=== PATIENT | female | born 1960 | race Caucasian/White ===

== ENCOUNTER → 2017-09-04 17:38 | Outpatient (CLI) | payer OTHER | END | disposition home or self-care (01) | LOC: D.MAMMO 07-18 11:00 | DX: Z12.31 Encounter for screening mammogram for malignant neoplasm of breast (principal) ==

== ENCOUNTER → 2018-12-09 18:30 | Outpatient (CLI) | payer OTHER | END | disposition home or self-care (01) | LOC: D.MAMMO 13:15 | PROVIDERS: ATTEND Family Medicine | DX: Z12.31 Encounter for screening mammogram for malignant neoplasm of breast (principal) ==

== ENCOUNTER → 2020-09-27 08:18 | Outpatient (CLI) | payer OTHER ==
[2020-09-27 09:20] LABS: ALBUMIN 3.8 g/dL (3.4-5.0); BILIRUBIN - DIRECT 0.08 mg/dL (0.00-0.30); BILIRUBIN - INDIRECT 0.3 mg/dL (0.00-1.00); BILIRUBIN - TOTAL 0.38 mg/dL (0.2-1.3); PROTEIN - SERUM 7.6 g/dL (6.4-8.2)
[2020-09-28 08:13] LABS: ANA REFLEX - DIRECT Negative (Negative)
[2020-09-28 11:11] LABS: IMMUNOGLOBULIN G 989 mg/dL (586-1602)
[2020-09-29 13:12] LABS: MITOCHONDRIAL ANTIBODY 101.1 Units (0.0-20.0); SMOOTH MUSCLE ABS (ACTIN) 31 Units (0-19)
== END | disposition home or self-care (01) ==
LOC: D.US 08:15
PROVIDERS: ATTEND Internal Medicine Gastroenterology
DX: K75.4 Autoimmune hepatitis (principal)

== ENCOUNTER → 2020-10-25 08:38 | Outpatient (CLI) | payer OTHER ==
[2020-10-26 11:11] LABS: HEPATITIS C ANTIBODY <0.1 S/CO RAT (0.0-0.9)
== END | disposition home or self-care (01) ==
LOC: D.LAB 08:38
PROVIDERS: ATTEND Internal Medicine Gastroenterology
DX: R76.0 Raised antibody titer (principal); R76.8 Other specified abnormal immunological findings in serum